=== PATIENT | male | born 1995 | race African-American/Black ===

== ENCOUNTER 2019-09-30 15:10 | Emergency (ER) | payer OTHER ==
[2019-09-30 15:17] VITALS: BP 140/68
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
== END 2019-09-30 16:26 | disposition home or self-care (01) ==
LOC: ER 15:10
DX: S02.2XXA Fracture of nasal bones, initial encounter for closed fracture (principal); J34.89 Other specified disorders of nose and nasal sinuses; R51 Headache; V87.7XXA Person injured in collision between other specified motor vehicles (traffic), initial encounter
CPT/HCPCS: 70486; 99283